=== PATIENT | male | born 1990 | race African-American/Black ===

== ENCOUNTER 2018-09-30 14:05 | Emergency (ER) | payer SELFPAY ==
[~2018-09-30] VITALS: Ht 170.2 cm; Wt 65.0 kg
[2018-09-30] MEDS ORDERED: IBUPROFEN 600MG TABLET PO ONE (17:00)
[2018-09-30 18:19] VITALS: BP 121/84
== END 2018-09-30 18:27 | disposition home or self-care (01) ==
LOC: ER 14:05
DX: S50.11XA Contusion of right forearm, initial encounter (principal); S23.41XA Sprain of ribs, initial encounter; M79.644 Pain in right finger(s); J45.909 Unspecified asthma, uncomplicated; V43.52XA Car driver injured in collision with other type car in traffic accident, initial encounter; Y93.89 Activity, other specified; Y92.410 Unspecified street and highway as the place of occurrence of the external cause
CPT/HCPCS: 71101; 73090; 73140; 99283